=== PATIENT | female | born 1995 | race Two or more races ===

== ENCOUNTER 2016-07-20 13:22 | Emergency (ER) | payer MEDICAID ==
[~2016-07-20] VITALS: Ht 160 cm; Wt 79.8 kg
[2016-07-20 13:23] VITALS: BP 157/101
[2016-07-20] MEDS ORDERED: KETOROLAC TROMETH 60MG/2ML VIAL IM ONE (14:30)
== END 2016-07-20 15:28 | disposition home or self-care (01) ==
LOC: ER 13:23
DX: F41.9 Anxiety disorder, unspecified (principal); J30.9 Allergic rhinitis, unspecified
CPT/HCPCS: 71020; 81025; 93005; 96372; 99284; J1885